=== PATIENT | male | born 1960 | race Caucasian/White ===

== ENCOUNTER 2023-03-28 15:15 | Emergency (ER) | payer BC, OTHER ==
[~2023-03-28] VITALS: Ht 193 cm; Wt 118.0 kg
[2023-03-28] MEDS ORDERED: dilTIAZem INJ 25 MG/5 ML VIAL ONE (15:22)
--- NOTE | 2023-03-28 15:24 | ED Cardiac General ---
History of Present Illness General Chief Complaint: Chest Pain Stated Complaint: IRR HEART RATE CHEST/BACK PAIN History of Present Illness Date Seen by Provider: Mar 28, 2023 Time Seen by Provider: 15:24 Initial Comments 63-year-old male presents with rapid heart rate and some discomfort due to it. He reports that his hearts been beating fast all day. He has a history of atrial fibs and is currently on digoxin and Eliquis. Patient reports he got little pain in his back from it. He denies any shortness of breath, fevers chills or other symptoms. Allergies and Home Medications Allergies Coded Allergies: No Known Drug Allergies (Unverified , 03/28/23) Patient Home Medication List Home Medication List Reviewed: Yes Review of Systems Review of Systems Constitutional: no symptoms reported EENTM: No Symptoms Reported Respiratory: See HPI Cardiovascular: Chest Pain, Irregular Heart Rate, Palpitations Gastrointestinal: No Symptoms Reported Genitourinary: No Symptoms Reported Musculoskeletal: no symptoms reported Skin: no symptoms reported Endocrine: No Symptoms Reported Hematologic/Lymphatic: No Symptoms Reported Physical Exam Vital Signs Vital Signs - First Documented 03/28/23 15:41 Temp 36.0 Pulse 156 Resp 24 B/P (MAP) 105/82 (90) Pulse Ox 96 Capillary Refill : Height, Weight, BMI Height: '" Weight: lbs. oz. 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 Norm as Tested Skin: Normal Color, Warm/Dry Progress/Results/Core Measures Results/Orders Lab Results Laboratory Tests Test 03/28/23 15:24 03/28/23 15:58 03/28/23 17:13 Range/Units White Blood Count 9.5 4.3-11.0 10^3/uL Red Blood Count 5.16 4.30-5.52 10^6/uL Hemoglobin 16.4 13.3-17.7 g/dL Hematocrit 48 40-54 % Mean Corpuscular Volume 94 80-99 fL Mean Corpuscular Hemoglobin 32 25-34 pg Mean Corpuscular Hemoglobin Concent 34 32-36 g/dL Red Cell Distribution Width 13.3 10.0-14.5 % Platelet Count 220 130-400 10^3/uL Mean Platelet Volume 10.0 9.0-12.2 fL Immature Granulocyte % (Auto) 0 % Neutrophils (%) (Auto) 67 42-75 % Lymphocytes (%) (Auto) 19 12-44 % Monocytes (%) (Auto) 13 H 0-12 % Eosinophils (%) (Auto) 0 0-10 % Basophils (%) (Auto) 0 0-10 % Neutrophils # (Auto) 6.4 1.8-7.8 10^3/uL Lymphocytes # (Auto) 1.8 1.0-4.0 10^3/uL Monocytes # (Auto) 1.2 H 0.0-1.0 10^3/uL Eosinophils # (Auto) 0.0 0.0-0.3 10^3/uL Basophils # (Auto) 0.0 0.0-0.1 10^3/uL Immature Granulocyte # (Auto) 0.0 0.0-0.1 10^3/uL Prothrombin Time 15.2 H 12.2-14.7 SEC INR Comment 1.2 0.8-1.4 Activated Partial Thromboplast Time 36 H 24-35 SEC Sodium Level 137 135-145 MMOL/L Potassium Level 4.3 3.6-5.0 MMOL/L Chloride Level 106 98-107 MMOL/L Carbon Dioxide Level 24 21-32 MMOL/L Anion Gap 7 5-14 MMOL/L Blood Urea Nitrogen 14 7-18 MG/DL Creatinine 1.03 0.60-1.30 MG/DL Estimat Glomerular Filtration Rate 81 BUN/Creatinine Ratio 14 Glucose Level 143 H 70-105 MG/DL Calcium Level 9.4 8.5-10.1 MG/DL Corrected Calcium 9.2 8.5-10.1 MG/DL Magnesium Level 2.3 1.6-2.4 MG/DL Total Bilirubin 1.3 H 0.1-1.0 MG/DL Aspartate Amino Transf (AST/SGOT) 21 5-34 U/L Alanine Aminotransferase (ALT/SGPT) 22 0-55 U/L Alkaline Phosphatase 77 40-136 U/L Troponin I < 0.028 < 0.028 <0.028 NG/ML Total Protein 7.6 6.4-8.2 GM/DL Albumin 4.2 3.2-4.5 GM/DL Digoxin Level < 0.30 L 0.80-2.00 NG/ML Urine Color YELLOW Urine Clarity CLEAR Urine pH 6.0 5-9 Urine Specific Garibaldi >=1.030 1.016-1.022 Urine Protein 1+ H NEGATIVE Urine Glucose (UA) NEGATIVE NEGATIVE Urine Ketones NEGATIVE NEGATIVE Urine Nitrite NEGATIVE NEGATIVE Urine Bilirubin 1+ H NEGATIVE Urine Urobilinogen 0.2 < = 1.0 MG/DL Urine Leukocyte Esterase NEGATIVE NEGATIVE Urine RBC (Auto) TRACE H NEGATIVE Urine RBC NONE /HPF Urine WBC NONE /HPF Urine Squamous Epithelial Cells NONE /HPF Urine Crystals NONE /LPF Urine Bacteria NEGATIVE /HPF Urine Casts NONE /LPF Urine Mucus NEGATIVE /LPF Urine Culture Indicated NO My Orders Orders - RAYGOZA,BENNIE L DO Ekg Tracing (03/28/23 15:19) Diltiazem Injection (Diltiazem Injection (03/28/23 15:22) Cbc With Automated Diff (03/28/23 15:25) Comprehensive Metabolic Panel (03/28/23 15:25) Magnesium (03/28/23 15:25) Protime With Inr (03/28/23 15:25) Partial Thromboplastin Time (03/28/23 15:25) Troponin I Noble (03/28/23 15:25) Ua Culture If Indicated (03/28/23 15:25) Ekg Tracing (03/28/23 15:27) Monitor-Rhythm Ecg Trace Only (03/28/23 15:27) Ekg Tracing (03/28/23 15:28) Digoxin (03/28/23 15:35) Ketorolac Injection (Ketorolac Injection (03/28/23 16:29) Orphenadrine Inj (Ed Only) (Norflex Inje (03/28/23 16:29) Chest Pa/Lat (2 View) (03/28/23 16:37) Troponin I Noble (03/28/23 17:05) Vital Signs/I&O 03/28/23 03/28/23 15:41 18:29 Temp 36.0 Pulse 156 72 Resp 24 24 B/P (MAP) 105/82 (90) 115/65 Pulse Ox 96 95 Progress Progress Note : Progress Note His diagnostic studies ordered reviewed and interpreted by me. Patient's labs showed no acute findings. Patient's chest x-ray shows some left-sided atele ctasis versus infiltrate. Patient at this time has no signs of pneumonia including cough, fever, chills so is likely atelectasis. Patient spontaneously converted to normal sinus rhythm. Patient continued to have some discomfort in his mid to lower back that was paraspinal. Pain was worse with movement and palpation and is likely related to a musculoskeletal issue. It was provided Norflex and Toradol in the ER and symptoms improved. Patient had 2 negative troponins. He is currently on digoxin. 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 Patient is otherwise stable and discharged home. I did recommend that if he develops fever, chills or signs of infection that he follows up and they consider antibiotics at that time. Initial ECG Impression Date: Mar 28, 2023 Initial ECG Impression Time: 15:20 Initial ECG Rate: 160 Initial ECG Rhythm: A Fib/Flutter Initial ECG Impression: Atrial Fibrillation w/RVR Comment old changes, pulmonary pattern EKG : EKG Time: 15:31 Rate: 96 Rhythm: Normal Sinus ECG Comparisson: Changed Comment NSR, left atrial enlargement, pulm pattern Diagnostic Imaging Diagonstic Imaging: Xray Plain Films/CT/US/NM/MRI: chest Comments Date of Exam:03/28/23 CHEST PA/LAT (2 VIEW) CHEST PA/LAT (2 VIEW) INDICATION: Chest pain. COMPARISON: None. FINDINGS: Lungs: Low lung volume. Left basilar airspace opacity. Stable pulmonary vasculature. Pleura: No pleural effusion or pneumothorax. Heart and Mediastinum: Cardiomediastinal silhouette and great vessels of the thorax are stable. Osseous Structures and Soft Tissues: No acute osseous abnormality. Normal soft tissues. IMPRESSION: Left basilar airspace opacity may represent infection or atelectasis. Reviewed: Reviewed by Me, Reviewed/Discussed Departure Impression Primary Impression: Paroxysmal atrial fibrillation Disposition: 01 HOME, SELF-CARE Condition: Stable Departure-Patient Inst. Patient Instructions: Atrial Fibrillation and Atrial Flutter ED Add. Discharge Instructions: Follow-up with your primary care provider as needed All discharge instructions reviewed with patient and/or family. Voiced understanding. BENNIE RAYGOZA DO Mar 28, 2023 15:24
[2023-03-28 15:35] LABS: BASOPHILS % (AUTO) 0 % (0-10); EOSINOPHILS % (AUTO) 0 % (0-10); HEMATOCRIT 48 % (40-54); HEMOGLOBIN 16.4 g/dL (13.3-17.7); LYMPHOCYTES # (AUTO) 1.8 10^3/uL (1.0-4.0); LYMPHOCYTES % (AUTO) 19 % (12-44); MEAN CORPUSCULAR HEMOGLOBIN 32 pg (25-34); MEAN CORPUSCULAR HGB CONC 34 g/dL (32-36); MEAN CORPUSCULAR VOLUME 94 fL (80-99); MONOCYTES # (AUTO) 1.2 10^3/uL (0.0-1.0); MONOCYTES % (AUTO) 13 % (0-12); NEUTROPHILS # (AUTO) 6.4 10^3/uL (1.8-7.8); NEUTROPHILS % (AUTO) 67 % (42-75); PLATELET COUNT 220 10^3/uL (130-400); WHITE BLOOD COUNT 9.5 10^3/uL (4.3-11.0)
[2023-03-28 15:46] LABS: ALBUMIN 4.2 GM/DL (3.2-4.5); CHLORIDE 106 MMOL/L (98-107); POTASSIUM 4.3 MMOL/L (3.6-5.0); SODIUM 137 MMOL/L (135-145)
[2023-03-28 15:47] LABS: CALCIUM 9.4 MG/DL (8.5-10.1)
[2023-03-28 15:48] LABS: GLUCOSE 143 MG/DL (70-105); TOTAL PROTEIN 7.6 GM/DL (6.4-8.2)
[2023-03-28 15:50] LABS: BILIRUBIN,TOTAL 1.3 MG/DL (0.1-1.0); CARBON DIOXIDE 24 MMOL/L (21-32)
[2023-03-28 15:52] LABS: ALKALINE PHOSPHATASE 77 U/L (40-136); CREATININE SERUM 1.03 MG/DL (0.60-1.30); GFR ESTIMATED 81
[2023-03-28 15:53] LABS: BUN/CREATININE RATIO 14
[2023-03-28 15:55] LABS: ALANINE AMINOTRANSFERASE 22 U/L (0-55); MAGNESIUM 2.3 MG/DL (1.6-2.4)
[2023-03-28 16:02] LABS: INR 1.2 (0.8-1.4); PROTHROMBIN TIME PATIENT 15.2 SEC (12.2-14.7)
[2023-03-28 16:18] LABS: CLARITY,URINE CLEAR; COLOR,URINE YELLOW
[2023-03-28 16:19] LABS: BILIRUBIN,URINE 1+ (NEGATIVE); GLUCOSE, URINE (UA) NEGATIVE (NEGATIVE); KETONES,URINE NEGATIVE (NEGATIVE); LEUKOCYTE ESTERASE ,URINE NEGATIVE (NEGATIVE); NITRITE,URINE NEGATIVE (NEGATIVE); PROTEIN,URINE 1+ (NEGATIVE)
[2023-03-28 16:20] LABS: BACTERIA,URINE NEGATIVE /HPF
[2023-03-28] MEDS ORDERED: ORPHENADRINE 60 MG/2 ML (NORFLEX) AMP (ED ONLY) IM STA (16:29)
[2023-03-28] MEDS ORDERED: KETOROLAC INJ 30 MG/ML VIAL IVP STA (16:29)
--- NOTE | 2023-03-28 17:08 | Diagnostic Imaging Report ---
CHEST PA/LAT (2 VIEW) INDICATION: Chest pain. COMPARISON: None. FINDINGS: Lungs: Low lung volume. Left basilar airspace opacity. Stable pulmonary vasculature. Pleura: No pleural effusion or pneumothorax. Heart and Mediastinum: Cardiomediastinal silhouette and great vessels of the thorax are stable. Osseous Structures and Soft Tissues: No acute osseous abnormality. Normal soft tissues. IMPRESSION: Left basilar airspace opacity may represent infection or atelectasis. Dictated by: Dictated on workstation # [id number]
[2023-03-28 18:29] VITALS: BP 115/65
== END 2023-03-28 18:29 | disposition home or self-care (01) ==
LOC: EDUNIT# 15:15 → ER 15:17
DX: I48.0 Paroxysmal atrial fibrillation (principal); Z79.01 Long term (current) use of anticoagulants; Z79.899 Other long term (current) drug therapy; Z28.310 Unvaccinated for COVID-19
CPT/HCPCS: 36415; 71046; 80053; 80162; 81000; 83735; 84484; 85025; 85610; 85730; 93005; 93041